=== PATIENT | male | born 1995 | race Caucasian/White ===

== ENCOUNTER 2018-12-09 04:21 | Emergency (ER) | payer OTHER ==
[2018-12-09] MEDS ORDERED: NS 1,000 ML IV ONE (04:36)
[2018-12-09 05:01] LABS: PLATELET COUNT 350 10^3/uL (150-400)
--- NOTE | 2018-12-09 05:05 | EDPHY ---
H & P Stated Complaint: CRAMPING AND DIARRHEA FOR PAST 5 DAYS,THOUGHT WAS SOMETHING HE ATE AT [facility] Time Seen by Provider: 12/09/18 05:04 HPI/ROS: HPI The patient presents with diarrhea for the last 5 days which happens approximately every 30 min which is yellow orangish in color and feels like a burning sensation in his rectum when he has a bowel movement. He has lower abdominal pain which is mild, intermittent, cramping in nature. He has stayed at the group home and is concerned that he may have contracted some sort of illness there leading to these symptoms. He has not any fevers or chills, nausea or vomiting. He is able to tolerate fluids.. REVIEW OF SYSTEMS 10 systems were reviewed and negative with the exception of the elements mentioned in the history of present illness. PMHx: Healthy Soc Hx: Homeless, smokes cigarettes daily PHYSICAL General Appearance: Alert, no distress Eyes: Pupils equal and round no pallor or injection ENT, Mouth: Mucous membranes moist Respiratory: There are no retractions, lungs are clear to auscultation Cardiovascular: Regular rate and rhythm Gastrointestinal: Abdomen is soft and non-tender, no masses, bowel sounds normal Neurological: A&O, moves all extremities Skin: Warm and dry, no rashes Musculoskeletal: Neck is supple non tender Extremities: symmetrical, full range of motion Psychiatric: Patient is oriented X 3, there is no agitation Source: Patient Exam Limitations: No limitations - Personal History Current Tetanus/Diphtheria Vaccine: Yes Current Tetanus Diphtheria and Acellular Pertussis (TDAP): Yes - Medical/Surgical History Hx Asthma: No Hx Chronic Respiratory Disease: No Hx Diabetes: No Hx Cardiac Disease: No Hx Renal Disease: No Hx Cirrhosis: No Hx Alcoholism: No Hx HIV/AIDS: No Hx Splenectomy or Spleen Trauma: No Other PMH: DENIES - Social History Smoking Status: Current every day smoker Constitutional: Initial Vital Signs Temperature (C) 36.4 C 12/09/18 04:22 Heart Rate 109 H 12/09/18 04:22 Respiratory Rate 18 12/09/18 04:22 Blood Pressure 120/72 12/09/18 04:22 O2 Sat (%) 99 12/09/18 04:22 O2 Delivery Mode Room Air Allergies/Adverse Reactions: amoxicillin Allergy (Verified 12/09/18 04:25) Sulfa (Sulfonamide Antibiotics) Allergy (Verified 12/09/18 04:25) Home Medications: Medication Instructions Recorded NK [No Known Home Meds] 12/09/18 Medical Decision Making Differential Diagnosis: 23-year-old homeless male presents with abdominal pain and diarrhea for the last 5 days. On exam, mildly tachycardic, otherwise well-appearing, abdominal exam is benign. Differential diagnosis includes viral gastroenteritis, toxin mediated enterocolitis, less likely appendicitis or colitis. Plan for IV fluids and basic labs. Labs are unremarkable. Patient will be discharged home with instructions for loperamide. He was unable to provide a stool specimen here. - Data Points Laboratory Results: Laboratory Results 12/09/18 04:50 12/09/18 04:50 12/09/18 12/09/18 04:50 04:50 WBC 10.50 10^3/uL H 10^3/uL (3.80-9.50) RBC 5.27 10^6/uL 10^6/uL (4.40-6.38) Hgb 16.2 g/dL g/dL (13.7-17.5) Hct 46.3 % % (40.0-51.0) MCV 87.9 fL fL (81.5-99.8) MCH 30.7 pg pg (27.9-34.1) MCHC 35.0 g/dL g/dL (32.4-36.7) RDW 12.1 % % (11.5-15.2) Plt Count 350 10^3/uL 10^3/uL (150-400) MPV 8.8 fL fL (8.7-11.7) Neut % (Auto) 68.0 % % (39.3-74.2) Lymph % (Auto) 20.7 % % (15.0-45.0) [place] % (Auto) 8.3 % % (4.5-13.0) Eos % (Auto) 2.4 % % (0.6-7.6) Baso % (Auto) 0.3 % % (0.3-1.7) Nucleat RBC Rel Count 0.0 % % (0.0-0.2) Absolute Neuts (auto) 7.15 10^3/uL H 10^3/uL (1.70-6.50) Absolute Lymphs (auto) 2.17 10^3/uL 10^3/uL (1.00-3.00) Absolute Monos (auto) 0.87 10^3/uL H 10^3/uL (0.30-0.80) Absolute Eos (auto) 0.25 10^3/uL 10^3/uL (0.03-0.40) Absolute Basos (auto) 0.03 10^3/uL 10^3/uL (0.02-0.10) Absolute Nucleated RBC 0.00 10^3/uL 10^3/uL (0-0.01) Immature Gran % 0.3 % % (0.0-1.1) Immature Gran # 0.03 10^3/uL 10^3/uL (0.00-0.10) Sodium 138 mEq/L mEq/L (135-145) Potassium 3.8 mEq/L mEq/L (3.5-5.2) Chloride 107 mEq/L mEq/L (97-110) Carbon Dioxide 24 mEq/l mEq/l (22-31) Anion Gap 7 mEq/L mEq/L (6-14) BUN 15 mg/dL mg/dL (7-23) Creatinine 0.8 mg/dL mg/dL (0.7-1.3) Estimated GFR > 60 Glucose 101 mg/dL H mg/dL (70-100) Calcium 9.4 mg/dL mg/dL (8.5-10.4) Total Bilirubin 0.3 mg/dL mg/dL (0.1-1.4) AST 34 IU/L IU/L (17-59) ALT 35 IU/L IU/L (21-72) Alkaline Phosphatase 65 IU/L IU/L (38-126) Total Protein 6.5 g/dL g/dL (6.3-8.2) Albumin 4.0 g/dL g/dL (3.5-5.0) Medications Given: Discontinued Medications Sodium Chloride (Ns) 1,000 mls @ 0 mls/hr IV EDNOW ONE; Wide Open PRN Reason: Protocol Stop: 12/09/18 04:37 Last Admin: 12/09/18 05:01 Dose: 1,000 mls Departure - Departure Disposition: Home, Routine, Self-Care Clinical Impression: Diarrhea, Homelessness Condition: Good Instructions: Loperamide (By mouth), Acute Diarrhea (ED) Additional Instructions: For your diarrhea, I recommend you take Imodium which you can purchase over-the- counter. Please return to the emergency department if your worse in any way. Referrals: [facility],. [Clinic] - As per Instructions
[2018-12-09 06:17] VITALS: BP 118/70
== END 2018-12-09 06:25 | disposition home or self-care (01) ==
DX: R19.7 Diarrhea, unspecified (principal); Z59.0 Homelessness